=== PATIENT | female | born 2005 | race Caucasian/White ===

== ENCOUNTER → 2024-04-17 13:02 | Outpatient (CLI) | payer OTHER, MEDICAID, SELFPAY ==
[2024-04-17 18:50] LABS: Add Manual Diff / Slide Review NO; Basophils Absolute Auto 100 /uL (0-100); Basophils Percent Auto 0.8 % (0-2); Eosinophils Absolute Auto 100 /uL (0-450); Eosinophils Percent Auto 1.9 % (2-4); Hematocrit 42.5 % (36-46); Hemoglobin 14.7 g/dL (12.0-16.0); Lymphocytes Absolute Auto 2400 /uL (1100-4500); Mean Corpuscular HGB Conc 34.6 % (30-36); Mean Corpuscular Hemoglobin 28.6 PG (26-34); Mean Corpuscular Volume 82.7 fL (80-100); Monocytes Absolute Auto 700 /uL (0-900); Monocytes Percent Auto 8.9 % (3-14); Neutrophils Absolute Auto 4100 /uL (1500-7000); Neutrophils Percent Auto 55.4 % (50-75); Platelet Count 278 X10^3/uL (150-400); Red Blood Cell Count 5.14 X10^6/uL (4.0-5.2); Red Cell Distribution Width 12.7 % (11.6-14.8); White Blood Cell Count 7.3 X10^3/uL (4.5-11.0)
[2024-04-17 18:55] LABS: HEMOLYSIS < 15 (0-50); Iron 136 ug/dL (37-170)
[2024-04-17 18:57] LABS: Hemoglobin A1C% w Est Avg Glu 4.8 % (4.0-6.0)
[2024-04-17 19:03] LABS: Alanine Aminotransferase 49 IU/L (<35); Albumin 4.4 g/dL (3.5-5.0); Albumin Globulin Ratio 1.3 (1.0-2.8); Alkaline Phosphatase 105 U/L (38-126); Aspartate Aminotransferase 36 IU/L (14-36); BUN Creatinine Ratio 12.5 (6-22); Bilirubin Total 0.4 mg/dL (0.2-1.3); Blood Urea Nitrogen 9 mg/dL (7-17); Calcium 10.3 mg/dL (8.4-10.2); Carbon Dioxide 25 mmol/L (22-32); Chloride 104 mmol/L (98-107); Estimated Glomerular Filt Rate > 60 mL/min (>60); Globulin 3.3 g/dL (1.7-4.1); Glucose 93 mg/dL (70-100); HEMOLYSIS < 15 (0-50); Potassium 4.3 mmol/L (3.4-5.1); Sodium 135 mmol/L (137-145); Total Protein 7.7 g/dL (6.3-8.2)
[2024-04-17 19:10] LABS: Percent Iron Saturation 34 % (15-50); Total Iron Binding Capacity 398 ug/dL (265-497); Transferrin 380 mg/dL (206-381)
[2024-04-17 19:33] LABS: Thyroid Stimulating Hormone 1.59 uIU/mL (0.47-4.68)
[2024-04-17 19:34] LABS: Ferritin 18 ng/mL (6-137)
[2024-04-17 19:53] LABS: Vitamin B12 759 pg/mL (239-931)
== END ==
PROVIDERS: PCP Family Medicine; Visit Provider Family Medicine
DX: Z13.1 Encounter for screening for diabetes mellitus (principal); F32.81 Premenstrual dysphoric disorder; F63.81 Intermittent explosive disorder; R53.83 Other fatigue; K90.0 Celiac disease; E66.9 Obesity, unspecified
CPT/HCPCS: 80053; 82306; 82607; 82728; 83036; 83540; 83550; 84443; 85025